=== PATIENT | female | born 1940 | race Caucasian/White ===

== ENCOUNTER → 2016-09-02 | Outpatient (CLI) | payer OTHER ==
[~2016-09-02] MED LIST: ATEN50TA2 PO; COUM2.5T17 PO; COZA100T2 PO; META48.54 PO; OMEP10CA45 PO; SYSTSOL11 OU; TRAM50TA2 PO; TRIA37.53 PO; TYLE500T78 PO; VICO5TAB
--- NOTE | 2016-09-02 12:05 | REP ---
Chest two views HISTORY: Preop Comparison: None The lungs are clear. The heart is normal in size. The pulmonary vasculature is normal in appearance. Degenerative change is present in the thoracic spine. IMPRESSION: No acute disease. Signed by Chito Jimenez MD 09/02/2016 11:57 A
[2016-09-02 12:55] LABS: MEAN CORPUSCULAR HEMOGLOBIN 31.8 pg (27.0-33.0); MEAN CORPUSCULAR HGB CONC 36.2 g/dl (32.0-36.5); MEAN CORPUSCULAR VOLUME 87.7 fl (80.0-96.0); RED CELL DISTRIBUTION WIDTH 12.3 % (11.5-14.5); WHITE BLOOD COUNT 9.6 K/mm3 (4.0-10.0)
[2016-09-02 13:02] LABS: INR 0.92
[2016-09-02 13:25] LABS: ALBUMIN/GLOBULIN RATIO 1.38 (1.00-1.93); ALKALINE PHOSPHATASE 69 U/L (45-117); ALT/SGPT 17 U/L (12-78); ANION GAP 9 MEQ/L (8-16); AST/SGOT 11 U/L (15-37); BILIRUBIN,TOTAL 0.6 MG/DL (0.2-1.0); BLOOD UREA NITROGEN 13 MG/DL (7-18); CALCIUM LEVEL 9.4 MG/DL (8.8-10.2); CARBON DIOXIDE LEVEL 28 MEQ/L (21-32); CHLORIDE LEVEL 88 MEQ/L (98-107); CREATININE FOR GFR 0.93 MG/DL (0.55-1.02); GLOMERULAR FILTRATION RATE > 60.0 (>39); GLUCOSE, FASTING 88 MG/DL (83-110); POTASSIUM SERUM 3.6 MEQ/L (3.5-5.1); SODIUM LEVEL 125 MEQ/L (136-145); TOTAL PROTEIN 6.9 GM/DL (6.4-8.2)
--- NOTE | 2016-09-03 18:41 | ECGEPIP ---
Stationary ECG Study [facility] Test Date: 2016-09-02 Pat Name: MELIDA MCNULTY Department: Room: - Gender: F Delivery Supervisor: [facility] : 1940 Requested By: Fredi Root Order Number: [id number] Reading MD: Biju Reid Measurements Intervals [place] Rate: 56 P: 63 WY: 177 QRS: 6 QRSD: 86 T: 51 QT: 400 QTc: 386 Interpretive Statements Sinus bradycardia 56 bpm. LA conduction disturbance. Somewhat slow precordial R-wave progression. No prior tracing for comparison Electronically Signed On 09-03-2016 18:41:44 EDT by Biju Reid
== END ==
LOC: M PAT 09:59
PROVIDERS: ATTEND Orthopaedic Surgery
DX: Z01.818 Encounter for other preprocedural examination (principal); R00.1 Bradycardia, unspecified; R94.31 Abnormal electrocardiogram [ECG] [EKG]; Z79.899 Other long term (current) drug therapy

== ENCOUNTER 2016-09-12 09:25 | Inpatient (IN) | payer OTHER, MEDICARE ==
[2016-09-02 11:35] VITALS: BP 130/80
--- NOTE | 2016-09-08 19:49 | HPE ---
DATE OF ADMISSION: 09/12/2016 CHIEF COMPLAINT: Right hip pain. HISTORY OF PRESENT ILLNESS: This is a pleasant 76-year-old female with progressively worsening right hip pain and stiffness. The patient has failed to improve with conservative treatment. She has elected for surgery for her continued symptoms. She has pain with weightbearing activities and her activities of daily living. X-rays of her hip are notable for advanced osteoarthritis of the right hip joint. She has consented for a right total hip arthroplasty by Dr. Dk Castanon. Medical optimization was performed by Dr. Lopez. ALLERGIES: Erythromycin aspirin, penicillin, lovastatin, clindamycin and Cipro. Morphine causes her to vomit. CURRENT MEDICATIONS: - atenolol/HCTZ 50/37.5 mg twice a day - triamterene 25 mg a day - Cozaar 100 mg a day - omeprazole 20 mg a day PAST MEDICAL HISTORY: Includes hypertension, acid reflux and history of basal cell cancer. PAST SURGICAL HISTORY: Includes left total hip replacement in 2005, vaginal hysterectomy and basal cancer excision from the chest. 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 FAMILY HISTORY: Noncontributory. REVIEW OF SYSTEMS: This patient denies chest pain, heart palpitations, cough, wheezing, difficulty breathing or shortness of breath. She denies abdominal pain, nausea, vomiting, diarrhea or constipation. She denies recent upper respiratory infection or urinary tract infection symptoms. She does complain of persistent pain in her right hip and pain with weightbearing activities in her right hip. PHYSICAL EXAMINATION: General: She is well-nourished, well-developed in no acute distress, adult female patient. She walks with a moderate limp favoring the right lower extremity. She is using a single-leg cane. Vital signs: She is 63 inches tall, weighs 148 pounds with a temperature of 97.4, blood pressure 150/90, pulse of 72 and respirations of 12. The neck was supple without adenopathy or jugular venous distension. There were no carotid bruits appreciated upon auscultation. Lungs were clear to auscultation without rales or wheeze throughout. Heart: Regular rate and rhythm. Abdomen: Bowel sounds were present. Extremities: Examination of the hip revealed intact skin without erythema, edema or ecchymosis. She had decreased range of motion with pain on internal and external rotation. The limb was neurovascularly intact. LABORATORY DATA: Urine culture showed no growth of clinical significance, protime was 12.4, INR 0.92. UA showed 2+ loop esterase, 18 white blood cells and 1+ bacteria with a specific gravity of 1.009. CBC was within normal limits. Sed rate was 10, glucose 88, BUN 13, creatinine 0.93, sodium 125, potassium 3.6. Nasal and sinus culture showed normal mak. Chest x-ray Showed no acute cardiopulmonary disease processes. EKG showed sinus bradycardia at 56 beats per minute. IMPRESSION: Symptomatic osteoarthritis of the right hip joint. PLAN: Consented for a right total hip arthroplasty by Dr. Dk Castanon. My preceptor for this patient encounter was Dr. Castanon. The preceptor was physically present in the building during the encounter and was fully available. As needed, all aspects of the patient interview, examination, medical decision making process, and medical care plan development were reviewed and approved by the preceptor. The preceptor is aware and concurs with the plan as stated in the body of this note and will attest to such by his/her cosignature.
[~2016-09-12] VITALS: Ht 162.6 cm; Wt 68.5 kg
[2016-09-12] VITALS (7 sets, daily range): BP systolic 129–177; BP diastolic 65–86; O2SAT 98
[~2016-09-12 09:25] MED LIST changes: -COUM2.5T17 PO; -TRAM50TA2 PO
[2016-09-12] MEDS ORDERED: VANCOMYCIN HCL 1,000 MG, VIAL MATE ADAPTER 1 EACH in D5W 250 ML IV ONE ×2 (10:00→22:00)
[2016-09-12] MEDS ORDERED: ACETAMINOPHEN 500 MG TAB PO ONE (10:00)
[2016-09-12] MEDS ORDERED: LR 1,000 ML IV ONE (10:00)
[2016-09-12] MEDS ORDERED: LR 1,000 ML IV SCH ×3 (10:00→14:00)
[2016-09-12] MEDS ORDERED: LIDOCAINE 1% SDV 5 ML VIAL SQ ONE (10:00)
[2016-09-12] MEDS ORDERED: ceFAZolin 1GM INJ (J0690) As Ordered ONE (10:34)
[2016-09-12] MEDS ORDERED: fentaNYL 100 MCG/2 ML INJECTION (J3010) As Ordered ONE ×2 (10:42→13:39)
[2016-09-12] MEDS ORDERED: MIDAZOLAM INJ 2 MG/2 ML VIAL (J2250) As Ordered ONE (10:42)
[2016-09-12] MEDS ORDERED: ePHEDrine SULFATE 25 MG/5 ML(5MG/ML) SYRINGE As Ordered ONE ×2 (11:33→11:56)
[2016-09-12] MEDS ORDERED: ONDANSETRON 4MG/2ML VIAL (J2405) As Ordered ONE (11:33)
[2016-09-12] MEDS ORDERED: dexameTHASONE 4 MG/ML 1ML VIAL (J1100) As Ordered ONE (11:33)
[2016-09-12] MEDS ORDERED: PROPOFOL 200 MG/20 ML VIAL As Ordered ONE (11:33)
[2016-09-12] MEDS ORDERED: LIDOCAINE 2% INJ 100 MG/5 ML SDV (FOR ANES.) As Ordered ONE (11:33)
[2016-09-12] MEDS: fentaNYL 100 MCG/2 ML INJECTION (J3010) IV PRN ×4 (13:42→14:05)
[2016-09-12] MEDS ORDERED: HYDROmorphone HCL 1 MG/ML SYRINGE (J1170) IV PRN (14:00)
[2016-09-12] MEDS ORDERED: ONDANSETRON 4MG/2ML VIAL (J2405) IV PRN ×2 (14:00→15:00)
[2016-09-12] MEDS ORDERED: FLEET ENEMA PR PRN (14:00)
[2016-09-12] MEDS ORDERED: MORPHINE 1MG/ML IN 0.9% NACL 100ML IV BAG As Ordered ONE (14:49)
[2016-09-12] MEDS ORDERED: NALOXONE INJ 0.4 MG/1 ML VIAL (J2310) IV PRN (15:00)
[2016-09-12] MEDS ORDERED: NALBUPHINE HCL 10 MG/ML AMP (J2300) IV PRN (15:00)
[2016-09-12] MEDS ORDERED: diphenhydrAMINE INJ 50MG/ML VIAL (J1200) IV PRN (15:00)
[2016-09-12] MEDS ORDERED: EPIDURAL/PCA KEYS XX PRN (15:00)
[2016-09-12] MEDS ORDERED: MORPHINE 1MG/ML IN 0.9% NACL 100ML IV BAG IV PRN (15:00)
[2016-09-12] MEDS ORDERED: WARFARIN SOD 5 MG TAB PO SCH (17:00)
--- NOTE | 2016-09-12 17:00 | CR.PDOC ---
[facility] Consultation Consultation DATE OF CONSULTATION: 09/09/16 PRIMARY CARE PHYSICIAN: Dr. Fan REFERRING PROVIDER: Dr. Omid Holguin ATTENDING PHYSICIAN: Dr. Omid Holguin REASON FOR CONSULTATION/CHIEF COMPLAINT: Presented to [facility] for an elective right hip replacement with Dr. Omid Holguin. HISTORY OF PRESENT ILLNESS: Patient is a 76 year old female with a PMHx of HTN, GERD, Basal cell CA (s/p surgery) and osteoarthritis who presented to [facility] for an elective right hip replacement with Dr. Omid Holguin. Patient has tried conservative management as an outpatient but failed to improve. She was scheduled for a surgery at that point. She has received optimization for surgery by Dr. Lopez, 1 month prior. Currently she does not report any pain at the hip. She notes some constipation. She denies any chest pain, shortness of breath, palpitations, nausea, vomiting, abdominal pain, constipation, diarrhea or dysuria. ALLERGIES: Please see below. HOME MEDICATIONS: Please see below. PAST MEDICAL HISTORY: HTN, GERD, Basal cell CA (s/p surgery) and Osteoarthritis PAST SURGICAL HISTORY: Left hip replacement (2005) Hysterectomy FAMILY HISTORY: - Non-contributory SOCIAL HISTORY: - Denies the use of alcohol, tobacco or illicit drugs - Denies recent travel or sick contacts - Lives with (Chito) - Occupation; Retired registered nurse REVIEW OF SYSTEMS: Constitutional: No recent trauma Eyes: No visual changes or eye pain Ears, Nose, Throat: Denies nose bleeds, or difficulty swallowing Cardiovascular: Denies chest pain, sweating, or orthopnea Respiratory: Denies cough, wheezing, or shortness of breath GI: Benito nausea, vomiting, abdominal pain, diarrhea or constipation : Denies pain with urination or frequency Musculoskeletal: Mild right hip pain; currently tolerating Neuro / Psych: Denies muscle weakness or sensory loss Skin: No skin rashes noted All other review of systems negative; otherwise stated in history of present illness PHYSICAL EXAMINATION: - Vitals: BP 139/68, HR 57, RR 16, Sat 100%RA, Temp 97.F - General: Lying in bed, No acute distress, Speaking in full sentences, AAOx3 - HEENT: NC, AT, PERRLA - CVS: Regular rhythm, bradycardic, +S1S2 - Lungs: Fair air entry bilaterally, Clear to auscultation - Abdomen: Soft, Non-distended, Non-tender, + Bowel sounds x 4 - Extremities: No lower extremity edema, No calf tenderness - Neuro: No focal motor or sensory deficit - Skin: No visible rashes LABORATORY DATA: Please see below. ASSESSMENT/PLAN: Elective right hip arthroplasty likely 2/2 osteoarthritis POD#0 - Presented for elective surgery after she failed conservative management - Tolerating pain at this time - Pain control and anticoagulation as per primary team - Physical therapy consulted Bradycardic - likely 2/2 medications - no reports of chest pain, shortness of breath or palpitations - Will get EKG at this time - Will reduce dose of beta bin and add holding parameters HTN - c/w Atenolol; will reduce dose to 25 from 50 - c/w Lisinopril - Will hold HCTZ and Triamterene (re: Hx of Hyponatremia from 09/02/16) History of Hyponatremia (09/02/16) - likely hypotonic, euvolemic - possibly 2/2 medications, possibly 2/2 SIADH - Will check CMP, Serum Osm, Urine electrolytes - Will check TSH, Cortisol - Will hold on diuretics (Triamterene and HCTZ) - Will hold on fluids Basal cell CA - s/p surgery Osteoarthritis - c/w Tylenol PRN GERD - c/w Omeprazole DVT prophylaxis - As per primary team Vital Signs/I&O Vital Signs Date Time Temp Pulse Resp B/P (MAP) Pulse Ox O2 Delivery O2 Flow Rate FiO2 09/12/16 15:26 97.5 57 16 139/68 (91) 100 Room Air Allergies Coded Allergies: Lovastatin (Verified Allergy, Severe, ANGIOEDEMA, 05/27/12) Penicillins (Verified Allergy, Intermediate, RASH, 05/27/12) Penicillins Cross Reactors (Verified Allergy, Intermediate, RASH, 05/27/12) Ciprofloxacin (Verified Allergy, Unknown, UNKNOWN, 09/02/16) Clindamycin (Verified Allergy, Unknown, UNKNOWN, 09/02/16) Aspirin (Verified Adverse Reaction, Mild, HEADACHE, 05/27/12) Erythromycin (Verified Adverse Reaction, Mild, HEADACHE, 05/27/12) Morphine (Verified Adverse Reaction, Unknown, VOMITING, 09/12/16) Home Medications Scheduled (Systane Ultra 0.4-0.3 %) 1 Leana Leana, 1 DROP OU QID, (Reported) Atenolol (Atenolol) 50 Mg Tab, 50 MG PO BID, (Reported) Hydrochlorothiazide W/Triamter (Triamterene/Hydrochloroth 37.5-25 mg) 1 Cap Cap , 1 CAP PO DAILY, (Reported) Losartan Potassium (Cozaar) 100 Mg Tab, 100 MG PO DAILY, (Reported) Omeprazole (Omeprazole) 10 Mg Cap, 10 MG PO DAILY, (Reported) Scheduled PRN Acetaminophen (Tylenol Extra Strength) 500 Mg Tab, 500 MG PO Q6HP PRN for PAIN, (Reported) Psyllium (Metamucil) 48.57 % Pow, 1 PKT PO PRN PRN for CONSTIPATION, (Reported) BRENDEN NEWSOME MD Sep 12, 2016 17:00
[2016-09-12 18:09] LABS: OSMOLALITY SERUM 273 MOSM/KG (280-301)
[2016-09-12 18:23] LABS: ALBUMIN 3.4 GM/DL (3.2-5.2); ALBUMIN/GLOBULIN RATIO 1.36 (1.00-1.93); ALKALINE PHOSPHATASE 53 U/L (45-117); ALT/SGPT 18 U/L (12-78); ANION GAP 8 MEQ/L (8-16); AST/SGOT 28 U/L (15-37); BILIRUBIN,TOTAL 0.5 MG/DL (0.2-1.0); BLOOD UREA NITROGEN 16 MG/DL (7-18); CALCIUM LEVEL 8.9 MG/DL (8.8-10.2); CARBON DIOXIDE LEVEL 27 MEQ/L (21-32); CHLORIDE LEVEL 92 MEQ/L (98-107); CREATININE FOR GFR 0.86 MG/DL (0.55-1.02); FREE T4 1.42 NG/DL (0.76-1.46); GLOMERULAR FILTRATION RATE > 60.0 (>39); GLUCOSE, FASTING 128 MG/DL (83-110); MAGNESIUM LEVEL 1.7 MG/DL (1.8-2.4); POTASSIUM SERUM 3.4 MEQ/L (3.5-5.1); SODIUM LEVEL 127 MEQ/L (136-145); TOTAL PROTEIN 5.9 GM/DL (6.4-8.2)
[2016-09-12 18:28] LABS: CORTISOL BASELINE 3.9 UG/DL (4.3-22.4)
[2016-09-12] MEDS ORDERED: LOSARTAN 50 MG TAB PO ONE (19:15)
[2016-09-12] MEDS ORDERED: POTASSIUM CHLORIDE 10 MEQ SR TABLET PO ONE (20:00)
[2016-09-12] MEDS: ATENOLOL 50 MG TAB PO SCH (20:35)
[2016-09-13 01:00] VITALS: BP 156/80
[2016-09-13 05:00] VITALS: BP 133/63
[2016-09-13] MEDS ORDERED: PERCOCET 5MG/325MG TAB PO PRN (06:30)
[2016-09-13] MEDS ORDERED: ONDANSETRON 4 MG TAB (S0181) PO PRN (06:30)
[2016-09-13 07:01] LABS: MEAN CORPUSCULAR HEMOGLOBIN 32.5 pg (27.0-33.0); MEAN CORPUSCULAR HGB CONC 36.6 g/dl (32.0-36.5); MEAN CORPUSCULAR VOLUME 88.7 fl (80.0-96.0); RED CELL DISTRIBUTION WIDTH 12.3 % (11.5-14.5); WHITE BLOOD COUNT 14.5 K/mm3 (4.0-10.0)
[2016-09-13 07:09] LABS: INR 1.69
[2016-09-13 07:32] LABS: CALCIUM LEVEL 8.7 MG/DL (8.8-10.2); CREATININE FOR GFR 1.01 MG/DL (0.55-1.02); GLOMERULAR FILTRATION RATE 56.7 (>39); POTASSIUM SERUM 3.6 MEQ/L (3.5-5.1)
--- NOTE | 2016-09-13 09:25 | RO ---
DATE OF PROCEDURE: 09/12/2016 PREPROCEDURE DIAGNOSIS: Right hip degenerative arthritis. POSTPROCEDURE DIAGNOSIS: Right hip degenerative arthritis. PROCEDURE: Right total hip arthroplasty using a size 3 [place] standard stem with a +5 neck and a 36 mm head with a 54 mm Gription cut with two acetabular screws with a neutral polyethylene liner. SURGEON: Fredi Castanon MD PRIMER CHARGING TOOL SETTER: PAM Crowder ANESTHESIA: Spinal. COMPLICATIONS: None. SPECIMENS: Femoral head. ESTIMATED BLOOD LOSS: 100 mL. DESCRIPTION OF PROCEDURE: Antibiotics were given intravenously preoperatively. A successful spinal anesthetic was induced and the patient was placed in the lateral decubitus position with a Denzel hip positioner. Down leg well padded, especially the perineal nerve and axillary roll was utilized. The right hip area was then carefully prepped and draped in the usual sterile fashion. Then after the appropriate time out, her incision was made for direct lateral approach to the hip. Bovie cautery was used to coagulate the crossing vessels. We divided the tensor fascia in line with the skin incision and we split the gluteus medius, anterior one third, posterior two third junction, then carefully divided the underlying gluteus minimus and hip capsule, carefully dissected off the proximal femur, externally rotated the hip and dislocated anteriorly. The piriformis fossa was identified and the starter reamer utilized, followed by the canal finding reamer. The lateralizing reamer was not utilized. It was fairly tight against the neck. We then began reaming up to a size 3 reamer. Then the cutting guide was placed and a femoral neck osteotomy performed. We then broached up to a size 3 [place] stem and then used the calcar planer. We then exposed the acetabulum. She had a large rim osteophyte and her acetabular bone was very sclerotic and marbleized. We then began reaming with a 47 mm reamer, advanced up to 53 mm reamer. The 54 trial fit but it seemed to be a good rim to rim contact. I got reasonable purchase, but I felt it best to use a Gription cut and use screws, thus that was called for. I copiously irrigated the acetabulum and used the extramedullary alignment jig to help set our version and abduction and then inserted the 54 Gription cup. I then drilled for the superior screw, measured at 20 and placed the 20 screw and then used the more posterior inferior screw hole, drilled, and then measured and used a #15 screw. Then irrigated out and placed the central hole eliminator and then the polyethylene. We then trialed with a #3 broach, standard offset with a 1.5 neck, 36 mm ball and she had very good stability to flexion, internal rotation and extension, external rotation but needed more length. [place] the offset was okay. Thus, I used a +5. That trialed nicely in terms of stability to flexion, internal rotation and extension, external rotation with minimal soft tissue telescoping. Thus I felt that it would be the appropriate construct for her. We then removed all the trials, copiously irrigated out the femoral canal, placed the real number 3 stem, and then dried the trunnion and placed a 36 +5 ball. We then irrigated copiously, as we did several times throughout the operation, and then began closing the gluteus minimus and anterior hip capsule back anatomically with interrupted #1 PDS, closed the gluteus medius back anatomically through the trochanter with interrupted #1 PDS sutures. Then we irrigated again and closed the tensor fascia with a combination of interrupted #1 PDS sutures distally and then a running Stratafix. Deep soft tissues were then closed with interrupted #2-0 PDS suture, followed by skin jamie. Dry sterile bulky dressing applied, and then she was turned supine and then transferred to the recovery room in stable condition. There were no intraoperative complications. Mr. Daniel Palma was critical to the success of the procedure by helping to manipulate the leg, helping to dislocate and relocate, help with appropriate soft tissue retraction, helped to close the wound, amongst many other tasks.
[2016-09-13] MEDS: OMEPRAZOLE 20 MG CAP PO SCH (09:38)
[2016-09-13] MEDS: MOM 30ML SUSPENSION UDC PO SCH (09:38)
[2016-09-13] MEDS: SENOKOT S TAB PO SCH ×2 (09:39→20:49)
[2016-09-13] MEDS: LOSARTAN 50 MG TAB PO SCH (09:41)
[2016-09-13] MEDS: ATENOLOL 50 MG TAB PO SCH ×2 (09:41→20:50)
[2016-09-13] MEDS: MIRALAX *UNIT DOSE* 17GM PACKET PO SCH (09:41)
[2016-09-13] MEDS: PERCOCET 5MG/325MG TAB PO PRN ×2 (09:42→16:07)
[2016-09-13 10:00] VITALS: BP 142/68
[2016-09-13 14:00] VITALS: BP 152/64
[2016-09-13] MEDS ORDERED: WARFARIN SOD 2.5 MG TAB PO ONE (17:00)
[2016-09-13] MEDS ORDERED: WARFARIN SOD 5 MG TAB PO ONE (17:00)
[2016-09-13 20:00] VITALS: O2SAT 97
[2016-09-13 22:00] VITALS: BP 133/68
[2016-09-13] MEDS: ACETAMINOPHEN TAB 650MG DOSE (2X325MG) PO PRN (23:14)
--- NOTE | 2016-09-14 02:58 | REP ---
Clinical: Status post right hip replacement. Technique: AP and cross-table lateral views. Findings: The patient is noted to be status post right hip arthroplasty with normal appearance and positioning to the femoral and acetabular components. Overlying postsurgical changes are appreciated. Impression: Normal status post right hip arthroplasty. Signed by Richi Moser MD 09/14/2016 02:51 A
[2016-09-14 06:00] VITALS: BP 135/62
[2016-09-14 06:42] LABS: MEAN CORPUSCULAR HGB CONC 35.7 g/dl (32.0-36.5); MEAN CORPUSCULAR VOLUME 89.7 fl (80.0-96.0); RED CELL DISTRIBUTION WIDTH 12.3 % (11.5-14.5); WHITE BLOOD COUNT 15.8 K/mm3 (4.0-10.0)
[2016-09-14 06:46] LABS: INR 2.78
[2016-09-14 06:52] LABS: CALCIUM LEVEL 9.1 MG/DL (8.8-10.2); CREATININE FOR GFR 0.98 MG/DL (0.55-1.02); GLOMERULAR FILTRATION RATE 58.7 (>39); MAGNESIUM LEVEL 2.1 MG/DL (1.8-2.4); POTASSIUM SERUM 3.3 MEQ/L (3.5-5.1)
[2016-09-14] MEDS ORDERED: COUM2.5T17 PO (07:15)
[2016-09-14] MEDS ORDERED: TRAM50TA2 PO (07:15)
[2016-09-14 08:52] LABS: CORTISOL AM 36.5 UG/DL (4.3-22.4)
[2016-09-14] MEDS: LOSARTAN 50 MG TAB PO SCH (09:00)
[2016-09-14] MEDS: ATENOLOL 50 MG TAB PO SCH ×2 (09:00→20:31)
[2016-09-14] MEDS: MOM 30ML SUSPENSION UDC PO SCH (09:34)
[2016-09-14] MEDS: OMEPRAZOLE 20 MG CAP PO SCH (09:34)
[2016-09-14] MEDS: SENOKOT S TAB PO SCH ×2 (09:34→20:31)
[2016-09-14] MEDS: MIRALAX *UNIT DOSE* 17GM PACKET PO SCH (09:35)
[2016-09-14] MEDS: ACETAMINOPHEN TAB 650MG DOSE (2X325MG) PO PRN (09:37)
[2016-09-14] MEDS ORDERED: POTASSIUM CHLORIDE 10 MEQ SR TABLET PO ONE (13:45)
[2016-09-14] MEDS: traMADol 50 MG TAB PO PRN (13:46)
--- NOTE | 2016-09-14 13:50 | IPN ---
DATE: 09/14/2016 SUBJECTIVE: The patient tells me she is feeling well. She has no complaints. She does tell me she has been drinking lots of water as she normally does as well a drinking lots of caffeine. She denies any chest pain, shortness of breath, fevers, chills, nausea, vomiting, or diarrhea. OBJECTIVE: VITAL SIGNS: Temperature T-max 100, pulse 97, respiratory rate 19, blood pressure 135/62, oxygen saturation 98% on room air. GENERAL: She is a very pleasant elderly female sitting in a recliner. She does not appear to be in any acute distress. HEENT: She has moist mucous membranes. Poor dentition. No elevation of central venous pressure. Cranial nerves II through XII are grossly intact. She is wearing glasses. CARDIOVASCULAR EXAM: S1 and S2 regular. RESPIRATORY EXAM: Clear. ABDOMINAL EXAM: Bowel sounds present. The abdomen is soft. EXTREMITIES: Dressing is clean, dry and intact. There is no clubbing, cyanosis, or edema. LABORATORY STUDIES: WBC 15.8 up from 14.5, hemoglobin 10.9, hematocrit 30.5, platelet count 294. Chemistry panel: Sodium 124, down from 127 at the time of admission. Potassium 3.3, chloride 90, bicarb 28, BUN 18, creatinine 0.9. An a.m. cortisol this morning is 36.5, TSH within normal limits, INR is 2.7. Urine osmolality is 441, urine sodium is 54. IMAGING: The patient did have a hip x-ray that was normal status post right hip arthroplasty. ASSESSMENT/PLAN: This is a 76-year-old female status post right hip arthroplasty with hyponatremia. 1. Right hip arthroplasty. Management per orthopedic surgery. The patient is apparently approaching discharge. 2. Hypertension. Continue with atenolol and losartan with holding parameters. Her hydrochlorothiazide and triamterene are currently on hold for hyponatremia since 09/02/2016. 3. Hyponatremia. Possibly related to hydrochlorothiazide, however she has been off this medication and her sodium continues to drop. She also has had excessive water intake and has three cups of water on the table next to her. At this time, I will fluid restrict her. Her TSH is within normal limits. Her cortisol is actually elevated. I will hold off on any fluids. We will monitor her sodium over the next 24-48 hours and see if it improves with fluid restriction. Should it not, could consider normal saline administration at that time. 4. Gastroesophageal reflux disease (GERD). Continue with omeprazole. DISPOSITION: Continue to monitor this patient closely until her sodium begins to head in the direction of normal.
[2016-09-14 14:00] VITALS: BP 132/61
[2016-09-14 22:00] VITALS: BP 133/63
[2016-09-15 06:00] VITALS: BP 130/69; O2SAT 99
[2016-09-15 06:47] LABS: MEAN CORPUSCULAR HEMOGLOBIN 31.5 pg (27.0-33.0); MEAN CORPUSCULAR HGB CONC 35.8 g/dl (32.0-36.5); MEAN CORPUSCULAR VOLUME 88.1 fl (80.0-96.0); RED CELL DISTRIBUTION WIDTH 12.3 % (11.5-14.5); WHITE BLOOD COUNT 14.7 K/mm3 (4.0-10.0)
[2016-09-15 06:49] LABS: INR 2.56
[2016-09-15 06:57] LABS: ANION GAP 5 MEQ/L (8-16); BLOOD UREA NITROGEN 19 MG/DL (7-18); CARBON DIOXIDE LEVEL 28 MEQ/L (21-32); CHLORIDE LEVEL 92 MEQ/L (98-107); CREATININE FOR GFR 0.86 MG/DL (0.55-1.02); GLOMERULAR FILTRATION RATE > 60.0 (>39); GLUCOSE, FASTING 112 MG/DL (83-110); POTASSIUM SERUM 3.6 MEQ/L (3.5-5.1); SODIUM LEVEL 125 MEQ/L (136-145)
[2016-09-15 07:56] VITALS: O2SAT 99
[2016-09-15] MEDS: LOSARTAN 50 MG TAB PO SCH (09:00)
[2016-09-15] MEDS: MIRALAX *UNIT DOSE* 17GM PACKET PO SCH (09:00)
[2016-09-15] MEDS: SENOKOT S TAB PO SCH ×2 (09:00→22:58)
[2016-09-15] MEDS: MOM 30ML SUSPENSION UDC PO SCH (09:23)
[2016-09-15] MEDS: OMEPRAZOLE 20 MG CAP PO SCH (09:24)
[2016-09-15] MEDS: ATENOLOL 50 MG TAB PO SCH ×2 (09:25→22:58)
--- NOTE | 2016-09-15 12:56 | IPN ---
DATE OF EXAMINATION: 09/15/2016 SUBJECTIVE: The patient reports that she is feeling well. She has no complaints. She has no pain. OBJECTIVE: VITAL SIGNS: Temperature 98.9, pulse 80, respiratory rate 17, blood pressure 130/69, oxygen saturation 99% on room air. GENERAL: She is a pleasant elderly female sitting in a recliner. She has an empty cup of coffee next to her and a full recently-filled cup of water next to her, as well. HEENT: She has moist mucous membranes. No elevation of central venous pressure. Cranial nerves II through XII are grossly intact. CARDIOVASCULAR EXAMINATION: S1, S2, regular. RESPIRATORY EXAMINATION: Clear. ABDOMINAL EXAMINATION: Benign. EXTREMITIES: Dressing is clean, dry, and intact. There is no clubbing, cyanosis, or edema. LABORATORY STUDIES: WBC 14.7, hemoglobin 10.4, platelet count 307. Chemistry panel: Sodium 125 stable from the time of admission and stable from 09/02/2016, potassium 3.6, chloride 92, bicarbonate 28, BUN 19, creatinine 0.8. An a.m. cortisol yesterday was 36.5. INR is 2.5. No new imaging. ASSESSMENT AND PLAN: This is a 76-year-old female, postoperative for right hip arthroplasty and hyponatremia. PROBLEMS: 1. Right hip arthroplasty. Management as per orthopedic surgery, disposition and planning. 2. Hyponatremia. Possibly related to hydrochlorothiazide use, however, I also have concern for psychogenic polydipsia and syndrome of inappropriate secretion of antidiuretic hormone. We are fluid restricting her. I will recheck a basic metabolic profile (BMP) this afternoon at 4 p.m. I did have to physically remove the fluids from her room for the second time. I did it yesterday, as well, and I have done it today once again. If her sodium does not improve, I will discuss further with nephrology for the addition of salt tablets. Thyroid-stimulating hormone (TSH) was within normal range. Her a.m. cortisol was elevated. 3. Hypertension. Continue with atenolol and losartan with holding parameters. Hold her hydrochlorothiazide and triamterene. 4. Gastroesophageal reflux disease. Continue with omeprazole. DISPOSITION: As long as her sodium 24 hours now is stable or improved, she could likely be discharged with close outpatient followup and repeat BMP check in the outpatient setting. Will continue to follow along with you with this patient.
[2016-09-15 14:00] VITALS: BP 130/74
[2016-09-15] MEDS: traMADol 50 MG TAB PO PRN ×2 (15:54→22:58)
[2016-09-15 16:35] LABS: ANION GAP 6 MEQ/L (8-16); BLOOD UREA NITROGEN 18 MG/DL (7-18); CALCIUM LEVEL 9.2 MG/DL (8.8-10.2); CARBON DIOXIDE LEVEL 31 MEQ/L (21-32); CHLORIDE LEVEL 93 MEQ/L (98-107); CREATININE FOR GFR 0.87 MG/DL (0.55-1.02); GLOMERULAR FILTRATION RATE > 60.0 (>39); GLUCOSE, FASTING 109 MG/DL (83-110); POTASSIUM SERUM 3.5 MEQ/L (3.5-5.1); SODIUM LEVEL 130 MEQ/L (136-145)
[2016-09-15 22:00] VITALS: BP 130/69; O2SAT 96
[2016-09-16 06:00] VITALS: BP 132/68
[2016-09-16] MEDS: MOM 30ML SUSPENSION UDC PO SCH ×2 (09:00→10:10)
[2016-09-16] MEDS: SENOKOT S TAB PO SCH ×2 (09:00→10:10)
[2016-09-16 09:48] VITALS: O2SAT 99
[2016-09-16] MEDS: MIRALAX *UNIT DOSE* 17GM PACKET PO SCH (10:09)
[2016-09-16] MEDS: OMEPRAZOLE 20 MG CAP PO SCH (10:10)
[2016-09-16 10:12] VITALS: BP 130/66
[2016-09-16] MEDS: LOSARTAN 50 MG TAB PO SCH (10:12)
[2016-09-16] MEDS: ATENOLOL 50 MG TAB PO SCH (10:13)
[2016-09-16] MEDS: traMADol 50 MG TAB PO PRN (10:19)
[2016-09-16 12:07] LABS: MEAN CORPUSCULAR HEMOGLOBIN 31.3 pg (27.0-33.0); MEAN CORPUSCULAR VOLUME 89.5 fl (80.0-96.0); RED CELL DISTRIBUTION WIDTH 11.8 % (11.5-14.5)
[2016-09-16 12:18] LABS: ANION GAP 6 MEQ/L (8-16); BLOOD UREA NITROGEN 18 MG/DL (7-18); CALCIUM LEVEL 8.8 MG/DL (8.8-10.2); CARBON DIOXIDE LEVEL 31 MEQ/L (21-32); CHLORIDE LEVEL 97 MEQ/L (98-107); CREATININE FOR GFR 0.79 MG/DL (0.55-1.02); GLOMERULAR FILTRATION RATE > 60.0 (>39); GLUCOSE, FASTING 86 MG/DL (83-110); POTASSIUM SERUM 3.8 MEQ/L (3.5-5.1); SODIUM LEVEL 134 MEQ/L (136-145)
[2016-09-16 14:00] VITALS: BP 118/57
[2016-09-16 14:04] LABS: INR 2.28
[2016-09-16] MEDS ORDERED: WARFARIN SOD 2.5 MG TAB PO ONE (17:00)
--- NOTE | 2016-09-21 07:26 | DSES ---
DATE OF ADMISSION: 09/12/2016 DATE OF DISCHARGE: 09/16/2016 ADMITTING DIAGNOSIS: 1. Osteoarthritis right hip. ATTENDING PHYSICIAN: Dk Castanon M.D. OTHER DIAGNOSIS: 1. Hypertension. 2. Gastric reflux disease. 3. History of basal cell carcinoma and she did develop hyponatremia during the hospital stay. DISCHARGE DIAGNOSIS: 1. Osteoarthritis right hip status post right total hip arthroplasty. HISTORY: This is a pleasant 76-year-old female patient with progressively worsening hip pain on the right side. She failed to improve with conservative management. She was admitted for elective hip replacement on right side. OPERATION PERFORMED: Right total hip arthroplasty. HOSPITAL COURSE: The patient was admitted on day of surgery underwent a right total hip arthroplasty, which was uneventful. During hospital course, she did develop hyponatremia was essentially treated with fluid retention and fluid restriction and dietary changes. She did improve by the day of discharge. On day of discharge, she was doing well weightbearing as tolerated on the right lower extremities. She will use adjust-dose Coumadin and JULISSA stockings for 30 days postoperative for deep vein thrombosis (DVT) prophylaxis. She will resume her preoperative medications and diet. She was given instructions to include but not limited to wound monitoring and activity limitations. She will follow up in our office in 10-14 days for surgical followup. She will resume her preoperative medications and diet. She will use oral pain medications for pain control. Please refer to medical record for further details.
== END 2016-09-16 14:30 | disposition home health service (06) | DRG 470 ==
LOC: M OR 09:25 → M MS5PR 15:35
PROVIDERS: ADMIT Orthopaedic Surgery; ATTEND Orthopaedic Surgery
PROC: 0SR902Z Replacement of Right Hip Joint with Metal on Polyethylene Synthetic Substitute, Open Approach (ICD-10-PCS; principal; 2016-09-12 12:00)
DX: M16.11 Unilateral primary osteoarthritis, right hip (principal); E22.2 Syndrome of inappropriate secretion of antidiuretic hormone; I10 Essential (primary) hypertension; K21.9 Gastro-esophageal reflux disease without esophagitis; R00.1 Bradycardia, unspecified; Z85.828 Personal history of other malignant neoplasm of skin; Z79.899 Other long term (current) drug therapy; Z88.0 Allergy status to penicillin; Z88.1 Allergy status to other antibiotic agents; Z88.5 Allergy status to narcotic agent; Z88.8 Allergy status to other drugs, medicaments and biological substances

== ENCOUNTER → 2016-09-26 | Outpatient (REF) | payer OTHER ==
[~2016-09-26] MED LIST changes: +COUM2.5T17 PO; +TRAM50TA2 PO
[2016-09-26 12:46] LABS: BASO % 0.2 % (0.0-1.0); EOS % 0.3 % (0.0-3.0); LARGE UNSTAINED CELL # 0.2 K/mm3 (0.0-0.4); LARGE UNSTAINED CELL % 1.7 % (0.0-4.0); LYMPH # 1.1 K/mm3 (1.5-4.5); MEAN CORPUSCULAR HEMOGLOBIN 30.7 pg (27.0-33.0); MEAN CORPUSCULAR HGB CONC 34.1 g/dl (32.0-36.5); MONO # 0.7 K/mm3 (0.0-0.8); MONO % 4.8 % (0.0-5.0); NEUTROPHILS # 11.6 K/mm3 (1.8-7.7); NEUTROPHILS % 85.1 % (36.0-66.0); PLATELET COUNT, AUTOMATED 688 k/mm3 (150-450); RED CELL DISTRIBUTION WIDTH 12.7 % (11.5-14.5); WHITE BLOOD COUNT 13.6 K/mm3 (4.0-10.0)
[2016-09-26 13:02] LABS: INR 1.67
== END ==
LOC: M LABDRAW1 12:03
PROVIDERS: ATTEND Orthopaedic Surgery
DX: Z47.1 Aftercare following joint replacement surgery (principal); Z79.01 Long term (current) use of anticoagulants

== ENCOUNTER → 2017-07-26 | Outpatient (REF) | payer OTHER ==
[2017-07-26 13:26] LABS: BASO % 0.3 % (0.0-1.0); EOS % 0.4 % (0.0-3.0); HEMATOCRIT 39.3 % (36.0-47.0); HEMOGLOBIN 14.3 g/dl (12.0-15.5); IMMATURE GRANULOCYTE % 0.3 % (0-3.0); LYMPH # 1.5 10^3/uL (1.5-4.5); LYMPH % 15.6 % (24.0-44.0); MEAN CORPUSCULAR HEMOGLOBIN 31.2 pg (27.0-33.0); MEAN CORPUSCULAR HGB CONC 36.4 g/dl (32.0-36.5); MEAN CORPUSCULAR VOLUME 85.6 fl (80.0-96.0); MONO # 0.9 10^3/uL (0.0-0.8); MONO % 9.3 % (0.0-5.0); NEUTROPHILS # 7.2 10^3/uL (1.8-7.7); NEUTROPHILS % 74.1 % (36.0-66.0); PLATELET COUNT, AUTOMATED 379 10^3/uL (150-450); RED BLOOD COUNT 4.59 10^6/uL (4.00-5.40); RED CELL DISTRIBUTION WIDTH 12.3 % (11.5-14.5); WHITE BLOOD COUNT 9.7 10^3/uL (4.0-10.0)
[2017-07-26 13:57] LABS: ERYTHROCYTE SEDIMENTATION RATE 6 mm/hr (0-30)
[2017-07-26 14:08] LABS: ALBUMIN 4.1 GM/DL (3.2-5.2); ALBUMIN/GLOBULIN RATIO 1.32 (1.00-1.93); ALKALINE PHOSPHATASE 71 U/L (45-117); ALT/SGPT 19 U/L (12-78); ANION GAP 10 MEQ/L (8-16); AST/SGOT 15 U/L (7-37); BILIRUBIN,TOTAL 0.6 MG/DL (0.2-1.0); BLOOD UREA NITROGEN 17 MG/DL (7-18); CALCIUM LEVEL 9.5 MG/DL (8.8-10.2); CARBON DIOXIDE LEVEL 27 MEQ/L (21-32); CHLORIDE LEVEL 92 MEQ/L (98-107); CREATININE FOR GFR 0.99 MG/DL (0.55-1.30); ESTIMATED AVERAGE GLUCOSE 103 MG/DL (60-110); GLOMERULAR FILTRATION RATE 57.9 (>39); GLUCOSE, FASTING 73 MG/DL (70-100); HEMOGLOBIN A1c 5.2 %; POTASSIUM SERUM 3.6 MEQ/L (3.5-5.1); RHEUMATOID FACTOR QUANT < 10.0 IU/ML (<15.0); SODIUM LEVEL 129 MEQ/L (136-145); TOTAL PROTEIN 7.2 GM/DL (6.4-8.2)
[2017-07-26 14:12] LABS: VITAMIN B12 LEVEL 354 PG/ML
[2017-07-26 14:21] LABS: FOLATE 19.2 NG/ML
[2017-07-27 14:14] LABS: ANTI DOUBLE STRAND-DNA AB <1 IU/mL (0-9); ANTINUCLEAR ANTIBODIES DIRECT Negative (Negative); SJOGREN'S ANTI SS-A <0.2 AI (0.0-0.9); SJOGREN'S ANTI SS-B <0.2 AI (0.0-0.9)
[2017-07-29 14:09] LABS: VITAMIN E(ALPHA TOCOPHEROL) 11.7 mg/L (9.0-29.0)
[2017-08-01 14:16] LABS: VITAMIN B1 LEVEL WHOLE BLOOD 122.8 nmol/L (66.5-200.0)
[2017-08-02 12:41] LABS: DRVV SCREEN 37.4 SEC
[2017-08-02 12:50] LABS: PTT LUPUS TYPE ANTICOAG SCREEN 0.9 (0-1.2)
== END ==
LOC: M LABNEURO 09:42
DX: G31.84 Mild cognitive impairment of uncertain or unknown etiology (principal)
CPT/HCPCS: 82746